=== PATIENT | female | born 1975 | race Caucasian/White ===

== ENCOUNTER → 2019-03-18 | Day surgery (SDC) | payer OTHER ==
[~2019-03-18] MED LIST: COZAAR25 MG PO; GLUCOPHAGE XR500 MG PO; NORVASC5 MG PO; ORPH100T PO; ULTRAM50 MG PO
== END | disposition home or self-care (01) ==
LOC: ADM 03-15 12:00 → CIR.AMB 05:32
DX: N84.0 Polyp of corpus uteri (principal)